=== PATIENT | male | born 1985 | race Caucasian/White ===

== ENCOUNTER 2017-08-17 10:55 | Emergency (ER) | payer OTHER ==
[2017-08-17 11:03] VITALS: RESP 18
--- NOTE | 2017-08-17 11:19 | ED ---
General Adult HPI - General Source: patient, RN notes reviewed, old records reviewed Mode of arrival: ambulatory Limitations: no limitations <Jose Ramon Carrizales - Last Filed: 08/17/17 12:32> <Jeovany Andino - Last Filed: 08/17/17 18:00> - General Chief complaint: Psychiatric Symptoms Stated complaint: Mental health Time Seen by Provider: 08/17/17 11:04 - History of Present Illness Initial comments: This is a 32-year-old male the ER for evaluation today. He is presenting for evaluation regarding suicidal thoughts. Patient is no colic recently lost all of his happiness all of his pain is under good hemostasis family. He does admit to drinking today. Denies prior history of depression or suicide (Jose Ramon Carrizales) - Related Data Home Medications Medication Instructions Recorded Confirmed No Known Home Medications [No 08/17/17 08/17/17 Known Home Medications] Allergies Allergy/AdvReac Type Severity Reaction Status Date / Time No Known Allergies Allergy Verified 08/17/17 11:57 Review of Systems ROS Other: All systems not noted in ROS Statement are negative. <Jose Ramon Carrizales - Last Filed: 08/17/17 12:32> ROS Other: All systems not noted in ROS Statement are negative. <Jeovany Andino - Last Filed: 08/17/17 18:00> ROS Statement: Those systems with pertinent positive or pertinent negative responses have been documented in the HPI. Past Medical History Past Medical History: No Reported History History of Any Multi-Drug Resistant Organisms: None Reported Past Surgical History: No Surgical Hx Reported Past Psychological History: No Psychological Hx Reported Smoking Status: Current every day smoker Past Alcohol Use History: Daily Past Drug Use History: Marijuana <Jose Ramon Carrizales - Last Filed: 08/17/17 12:32> General Exam Limitations: no limitations General appearance: alert, in no apparent distress Head exam: Present: atraumatic, normocephalic, normal inspection Eye exam: Present: normal appearance, PERRL, EOMI. Absent: scleral icterus, conjunctival injection, periorbital swelling ENT exam: Present: normal exam, mucous membranes moist Neck exam: Present: normal inspection. Absent: tenderness, meningismus, lymphadenopathy Respiratory exam: Present: normal lung sounds bilaterally. Absent: respiratory distress, wheezes, rales, rhonchi, stridor Cardiovascular Exam: Present: regular rate, normal rhythm, normal heart sounds. Absent: systolic murmur, diastolic murmur, rubs, gallop, clicks GI/Abdominal exam: Present: soft, normal bowel sounds. Absent: distended, tenderness, guarding, rebound, rigid Extremities exam: Present: normal inspection, full ROM, normal capillary refill. Absent: tenderness, pedal edema, joint swelling, calf tenderness Back exam: Present: normal inspection Neurological exam: Present: alert, oriented X3, CN II-XII intact Psychiatric exam: Present: normal affect, normal mood Skin exam: Present: warm, dry, intact, normal color. Absent: rash <Jose Ramon Carrizales - Last Filed: 08/17/17 12:32> Vital Signs 08/17/17 08/17/17 10:56 15:42 Temperature 98.6 F Pulse Rate 99 82 Respiratory 18 18 Rate Blood Pressure 133/102 121/78 O2 Sat by Pulse 97 Oximetry EKG Findings - EKG Comments: EKG Findings:: EKG shows normal sinus rhythm rate of 87, [place] 150, QRS 02, QTc 466 <Jose Ramon Carrizales - Last Filed: 08/17/17 12:32> Medical Decision Making - Lab Data Result diagrams: 08/17/17 12:13 <Jose Ramon Carrizales - Last Filed: 08/17/17 12:32> - Lab Data Result diagrams: 08/17/17 12:13 08/17/17 12:13 <Jeovany Andino - Last Filed: 08/17/17 18:00> - Medical Decision Making Patient reevaluated by myself, Dr. Andino. Patient does have ecchymosis near the left eye. Patient states he fell several days ago and did have reported normal head CT. Patient states he is having no problems with it. Patient denies suicidal ideation and does contract for safety. Patient was seen by mental health services recommends discharge. Patient is requesting discharge at this time. (Jeovany Andino) - Lab Data Lab Results 08/17/17 08/17/17 08/17/17 Range/Units 11:14 12:13 12:13 WBC 5.6 (3.8-10.6) k/uL RBC 5.34 (4.30-5.90) m/uL Hgb 16.3 (13.0-17.5) gm/dL Hct 46.6 (39.0-53.0) % MCV 87.1 (80.0-100.0) fL MCH 30.6 (25.0-35.0) pg MCHC 35.1 (31.0-37.0) g/dL RDW 12.8 (11.5-15.5) % Plt Count 330 (150-450) k/uL Neutrophils % 63 % Lymphocytes % 28 % Monocytes % 5 % Eosinophils % 1 % Basophils % 0 % Neutrophils # 3.6 (1.3-7.7) k/uL Lymphocytes # 1.6 (1.0-4.8) k/uL Monocytes # 0.3 (0-1.0) k/uL Eosinophils # 0.1 (0-0.7) k/uL Basophils # 0.0 (0-0.2) k/uL PT (9.0-12.0) sec INR (<1.2) Sodium 147 H (137-145) mmol/L Potassium 4.2 (3.5-5.1) mmol/L Chloride 106 (98-107) mmol/L Carbon Dioxide 26 (22-30) mmol/L Anion Gap 15 mmol/L BUN 9 (9-20) mg/dL Creatinine 0.90 (0.66-1.25) mg/dL Est GFR (CKD-EPI)AfAm >90 (>60 ml/min/1.73 sqM) Est GFR (CKD-EPI)NonAf >90 (>60 ml/min/1.73 sqM) Glucose 98 (74-99) mg/dL Calcium 9.3 (8.4-10.2) mg/dL Total Bilirubin 0.7 (0.2-1.3) mg/dL AST 49 (17-59) U/L ALT 42 (21-72) U/L Alkaline Phosphatase 65 (38-126) U/L Total Protein 7.3 (6.3-8.2) g/dL Albumin 4.6 (3.5-5.0) g/dL Lipase 146 (23-300) U/L Salicylates <1.0 mg/dL Urine Opiates Screen Not Detected (NotDetected) Ur Oxycodone Screen Not Detected (NotDetected) Urine Methadone Screen Not Detected (NotDetected) Ur Propoxyphene Screen Not Detected (NotDetected) Acetaminophen <10.0 ug/mL Ur Barbiturates Screen Not Detected (NotDetected) U Tricyclic Antidepress Not Detected (NotDetected) Ur Phencyclidine Scrn Not Detected (NotDetected) Ur Amphetamines Screen Not Detected (NotDetected) U Methamphetamines Scrn Not Detected (NotDetected) U Benzodiazepines Scrn Not Detected (NotDetected) Urine Cocaine Screen Not Detected (NotDetected) U Marijuana (THC) Screen Detected H (NotDetected) Serum Alcohol 184 mg/dL 08/17/17 Range/Units 12:13 WBC (3.8-10.6) k/uL RBC (4.30-5.90) m/uL Hgb (13.0-17.5) gm/dL Hct (39.0-53.0) % MCV (80.0-100.0) fL MCH (25.0-35.0) pg MCHC (31.0-37.0) g/dL RDW (11.5-15.5) % Plt Count (150-450) k/uL Neutrophils % % Lymphocytes % % Monocytes % % Eosinophils % % Basophils % % Neutrophils # (1.3-7.7) k/uL Lymphocytes # (1.0-4.8) k/uL Monocytes # (0-1.0) k/uL Eosinophils # (0-0.7) k/uL Basophils # (0-0.2) k/uL PT 10.0 (9.0-12.0) sec INR 1.0 (<1.2) Sodium (137-145) mmol/L Potassium (3.5-5.1) mmol/L Chloride (98-107) mmol/L Carbon Dioxide (22-30) mmol/L Anion Gap mmol/L BUN (9-20) mg/dL Creatinine (0.66-1.25) mg/dL Est GFR (CKD-EPI)AfAm (>60 ml/min/1.73 sqM) Est GFR (CKD-EPI)NonAf (>60 ml/min/1.73 sqM) Glucose (74-99) mg/dL Calcium (8.4-10.2) mg/dL Total Bilirubin (0.2-1.3) mg/dL AST (17-59) U/L ALT (21-72) U/L Alkaline Phosphatase (38-126) U/L Total Protein (6.3-8.2) g/dL Albumin (3.5-5.0) g/dL Lipase (23-300) U/L Salicylates mg/dL Urine Opiates Screen (NotDetected) Ur Oxycodone Screen (NotDetected) Urine Methadone Screen (NotDetected) Ur Propoxyphene Screen (NotDetected) Acetaminophen ug/mL Ur Barbiturates Screen (NotDetected) U Tricyclic Antidepress (NotDetected) Ur Phencyclidine Scrn (NotDetected) Ur Amphetamines Screen (NotDetected) U Methamphetamines Scrn (NotDetected) U Benzodiazepines Scrn (NotDetected) Urine Cocaine Screen (NotDetected) U Marijuana (THC) Screen (NotDetected) Serum Alcohol mg/dL Disposition <Jose Ramon Carrizales - Last Filed: 08/17/17 12:32> Is patient prescribed a controlled substance at d/c from ED?: No <Jevoany Andino - Last Filed: 08/17/17 18:00> Clinical Impression: Depression, Alcohol intoxication Disposition: HOME SELF-CARE Condition: Stable Instructions: Depression (ED), Suicide Prevention for Adults (ED), Abuse of Alcohol (ED), Alcohol Intoxication (ED) Additional Instructions: Please follow-up with primary care physician in the next day or 2 for recheck. Please follow-up also with mental health services as directed, including alcoholic anonymous and or [address]. Return for worsening symptoms, thoughts of self-harm or other concerns. Referrals: Keith Crowder MD [STAFF PHYSICIAN] - 1-2 days
[2017-08-17] MEDS ORDERED: SODIUM CHLORIDE 0.9% 1,000 ML IV STA (11:46)
[2017-08-17 11:47] LABS: Amphetamine Screen,Urine Not Detected (NotDetected); Barbiturate Screen,Urine Not Detected (NotDetected); Benzodiazepines Screen,Urine Not Detected (NotDetected); Cocaine Screen,Urine Not Detected (NotDetected); Methadone Screen, Urine Not Detected (NotDetected); Opiate Screen,Urine Not Detected (NotDetected); Oxycodone Screen, Urine Not Detected (NotDetected); Phencyclidine Screen,Urine Not Detected (NotDetected); Tricyclic Antidepressant,Urine Not Detected (NotDetected); Urn Cannabinoid Scrn Detected (NotDetected)
[2017-08-17] MEDS ORDERED: LORazepam 2 MG/ML INJ IV STA ×2 (11:47→15:36)
[2017-08-17 12:27] LABS: Basophils % (A) 0 %; Eosinophils # (A) 0.1 k/uL (0-0.7); Eosinophils % (A) 1 %; HCT 46.6 % (39.0-53.0); HGB 16.3 gm/dL (13.0-17.5); Lymphocytes # (A) 1.6 k/uL (1.0-4.8); Lymphocytes % (A) 28 %; MCH 30.6 pg (25.0-35.0); MCHC 35.1 g/dL (31.0-37.0); MCV 87.1 fL (80.0-100.0); Monocytes # (A) 0.3 k/uL (0-1.0); Monocytes % (A) 5 %; Neutrophils # (A) 3.6 k/uL (1.3-7.7); Neutrophils % (A) 63 %; Platelet Count 330 k/uL (150-450); RBC 5.34 m/uL (4.30-5.90); RDW 12.8 % (11.5-15.5); WBC 5.6 k/uL (3.8-10.6)
[2017-08-17 12:39] LABS: ALT 42 U/L (21-72); AST 49 U/L (17-59); Acetaminophen <10.0 ug/mL; Albumin 4.6 g/dL (3.5-5.0); Alkaline Phosphatase 65 U/L (38-126); Anion Gap 15 mmol/L; Blood Urea Nitrogen 9 mg/dL (9-20); Calcium 9.3 mg/dL (8.4-10.2); Carbon Dioxide 26 mmol/L (22-30); Chloride 106 mmol/L (98-107); Glucose 98 mg/dL (74-99); Lipase 146 U/L (23-300); Potassium 4.2 mmol/L (3.5-5.1); Salicylate <1.0 mg/dL; Sodium 147 mmol/L (137-145); Total Bilirubin 0.7 mg/dL (0.2-1.3); Total Protein 7.3 g/dL (6.3-8.2)
[2017-08-17 12:42] LABS: Alcohol 184 mg/dL
--- NOTE | 2017-08-17 13:36 | CT ---
EXAMINATION TYPE: CT brain wo con, CT orbits wo con DATE OF EXAM: 08/17/2017 COMPARISON: NONE HISTORY: Fall injury with headache and Lt orbit pain and contusion CT DLP: 1007.9 (accession [id number]), 1320.0 (accession [id number]) mGycm. Automated Exposure Control f or Dose Reduction was Utilized. TECHNIQUE: CT scan of the head and orbits are performed without contrast. FINDINGS: There is no acute intracranial hemorrhage, mass effect, or midline shift identified. The ventricles and sulci are within normal limits in size. The calvarium is intact. The orbital floors and ramirez are intact. The globes are intact bilaterally. Intraconal fat is preserv ed. There is small hematoma over the left zygoma. The zygomatic arches are intact. Remaining bones ar e intact. Nasal septum is slightly deviated to left of midline without fracture. Temporomandibular mahesh ints are maintained bilaterally. Visualized mastoid air cells show no suspicious opacification. Visua lized portion of pterygoid plates are intact. IMPRESSION: 1. No acute intracranial hemorrhage, mass effect, or midline shift is seen. 2. No acute orbital fracture or dislocation is seen. There is small hematoma left zygoma region is no mak.
[2017-08-17] MEDS ORDERED: KETOROLAC 30 MG/ML 1 ML VIAL IVP STA (15:44)
[2017-08-17 18:15] VITALS: BP 127/83; PULSE 91; TEMP 97.9
== END 2017-08-17 18:15 | disposition home or self-care (01) ==
LOC: EC 10:55
DX: F32.9 Major depressive disorder, single episode, unspecified (principal); F10.120 Alcohol abuse with intoxication, uncomplicated; S00.83XA Contusion of other part of head, initial encounter; F17.200 Nicotine dependence, unspecified, uncomplicated; W19.XXXA Unspecified fall, initial encounter; Y90.6 Blood alcohol level of 120-199 mg/100 ml
CPT/HCPCS: 82075; 36415; 93005; 80053; 83690; 85025; 85610; 80306; 83520 ×2; 80320; 70450; 70480; 99285; 96374; 96375; 96376; 96361 ×3; J2060; J1885

== ENCOUNTER 2017-09-04 21:36 | Emergency (ER) | payer OTHER ==
[2017-09-04 21:40] VITALS: RESP 18
[2017-09-04 23:12] LABS: Appearance,Urine Clear (Clear); Bilirubin,Urine Negative (Negative); Blood,Urine Negative (Negative); Color,Urine Yellow; Glucose,Urine (UA) Negative (Negative); Ketones,Urine Negative (Negative); Leukocyte Esterase,Urine Negative (Negative); Nitrite,Urine Negative (Negative); Protein,Urine Negative (Negative); Specific Gravity,Urine 1.011 (1.001-1.035)
[2017-09-04 23:16] VITALS: BP 97/50; PULSE 91; TEMP 97.5
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
[2017-09-04 23:24] LABS: Amphetamine Screen,Urine Not Detected (NotDetected); Barbiturate Screen,Urine Not Detected (NotDetected); Benzodiazepines Screen,Urine Not Detected (NotDetected); Cocaine Screen,Urine Not Detected (NotDetected); Methadone Screen, Urine Not Detected (NotDetected); Opiate Screen,Urine Not Detected (NotDetected); Oxycodone Screen, Urine Not Detected (NotDetected); Phencyclidine Screen,Urine Not Detected (NotDetected); Tricyclic Antidepressant,Urine Detected (NotDetected); Urn Cannabinoid Scrn Detected (NotDetected)
[2017-09-04] MEDS ORDERED: LORazepam 1 MG TAB PO STA (23:58)
== END 2017-09-05 00:37 | disposition home or self-care (01) ==
LOC: EC 21:36
DX: F41.8 Other specified anxiety disorders (principal); F43.9 Reaction to severe stress, unspecified; F17.200 Nicotine dependence, unspecified, uncomplicated
CPT/HCPCS: 80306; 81003; 82075; 99284